=== PATIENT | female | born 1995 | race Caucasian/White ===

== ENCOUNTER 2018-01-02 19:35 | Emergency (ER) | payer BC, OTHER ==
[2018-01-02 20:06] VITALS: BP 122/84
--- NOTE | 2018-01-02 20:49 | UC ---
General HPI - HPI Summary HPI Summary: states she had unprotected intercourse with a man 5 days ago. She states she started having some external genital itching a day later and burning urination but that she had used some fabric softener at the same time and when she changed to underwear that had not been laundered with it, the itching stopped but she continues to have burning, Denies fever, chills, or flank pain. She states she is on julio, and that her menstrual period is due today or tomorrow. - History of Current Complaint Chief Complaint: UCGU Stated Complaint: FOOT INJURY, AND STD TESTING Time Seen by Provider: 01/02/18 19:57 Hx Obtained From: Patient Hx Last Menstrual Period: 12/03/17 Onset/Duration: Sudden Onset, Lasting Days Onset Severity: Mild Current Severity: Mild Pain Intensity: 2 Associated Signs & Symptoms: Positive: Dysuria - Allergy/Home Medications Allergies/Adverse Reactions: Allergies Allergy/AdvReac Type Severity Reaction Status Date / Time No Known Allergies Allergy Verified 01/02/18 20:07 Home Medications: Home Medications Julio Iud 01/02/18 [History] PMH/Surg Hx/FS Hx/Imm Hx Previously Healthy: Yes - Surgical History Surgical History: None - Family History Known Family History: Positive: None - Social History Alcohol Use: Rare Substance Use Type: None Smoking Status (MU): Never Smoked Tobacco - Immunization History Most Recent Tetanus Shot: UTD Review of Systems Constitutional: Negative Genitourinary: Dysuria, Frequency, Urgency All Other Systems Reviewed And Are Negative: Yes Physical Exam Triage Information Reviewed: Yes Appearance: Well-Appearing, No Pain Distress, Well-Nourished Vital Signs: Initial Vital Signs Temp 98.3 F 01/02/18 19:58 Pulse 74 01/02/18 19:58 Resp 16 01/02/18 19:58 BP 122/84 01/02/18 19:58 Pulse Ox 96 01/02/18 19:58 Vital Signs Reviewed: Yes Eyes: Positive: Conjunctiva Clear ENT: Positive: Hearing grossly normal Neck: Positive: Supple, Nontender Respiratory: Positive: Chest non-tender, Lungs clear, Normal breath sounds, No respiratory distress Cardiovascular: Positive: RRR, No Murmur, Pulses Normal, Brisk Capillary Refill Abdomen Description: Positive: Nontender, No Organomegaly, Soft, Other: - no CVAT Musculoskeletal Exam: Normal Course/Dx - Course Course Of Treatment: patient started having urinary symptoms a day after intercourse, UA positive for blood, start macrobid as prescribed, awaiting results of STD screen and urine cultures. Oral hydration with plenty of fluids, f/u PCP - Differential Dx - Multi-Symptom Provider Diagnoses: UTI. Screening for STD Discharge - Sign-Out/Discharge Documenting (check all that apply): Discharge/Admit/Transfer - Discharge Plan Condition: Stable Disposition: HOME Patient Education Materials: Urinary Tract Infection in Women (ED), Sexually Transmitted Diseases (ED), Condom Use (ED), Safe Sex (ED), Female Condom Use (ED ) Referrals: Thelma Conner MD [Primary Care Provider] - - Billing Disposition and Condition Condition: STABLE Disposition: Home
[2018-01-02] MEDS ORDERED: Nitrofurantoin Macrocrystals* 50 MG CAP PO ONE (20:50)
--- NOTE | 2018-01-06 13:48 | UC ---
- Progress Note Progress Note: neg GC neg CH no change ljj 01/06/2018 Discharge - Sign-Out/Discharge Documenting (check all that apply): Post-Discharge Follow Up - Discharge Plan Condition: Stable Disposition: HOME Prescriptions: Nitrofurantoin Monohyd/M-Cryst [Macrobid 100 mg Capsule] 100 mg PO BID 7 Days # 14 cap Patient Education Materials: Nitrofurantoin Macrocrystals (By mouth), Sexually Transmitted Diseases (ED), Condom Use (ED), Safe Sex (ED), Urinary Tract Infection in Women (ED), Female Condom Use (ED) Referrals: Thelma Conner MD [Primary Care Provider] - - Billing Disposition and Condition Condition: STABLE Disposition: Home
== END 2018-01-02 21:06 | disposition home or self-care (01) ==
LOC: UCEAST 19:35
DX: N39.0 Urinary tract infection, site not specified (principal); R31.9 Hematuria, unspecified; Z11.3 Encounter for screening for infections with a predominantly sexual mode of transmission
CPT/HCPCS: 36415; 81003; 86592; 86703; 86803; 87491; 87591; 99212; A9270-GY; G0463